=== PATIENT | female | born 1950 | race Caucasian/White ===

== ENCOUNTER 2017-11-16 09:46 | Emergency (ER) | payer MEDICARE, MEDICAID ==
[~2017-11-16] VITALS: Ht 157.5 cm; Wt 66.2 kg
[2017-11-16 09:52] VITALS: Ht 157.5 cm; Wt 66.2 kg
[2017-11-16 10:51] VITALS: BP 128/65
== END 2017-11-16 10:51 | disposition home or self-care (01) ==
LOC: ED 09:46
DX: S59.911A Unspecified injury of right forearm, initial encounter (principal); I10 Essential (primary) hypertension; E11.9 Type 2 diabetes mellitus without complications; J45.909 Unspecified asthma, uncomplicated; X50.9XXA Other and unspecified overexertion or strenuous movements or postures, initial encounter; Y99.8 Other external cause status; Y93.89 Activity, other specified; Y92.89 Other specified places as the place of occurrence of the external cause

== ENCOUNTER 2018-08-31 03:45 | Emergency (ER) | payer MEDICARE, MEDICAID ==
[~2018-08-31] VITALS: Ht 160 cm; Wt 68.0 kg
[2018-08-31 03:50] VITALS: Ht 160 cm; Wt 68.0 kg
[2018-08-31 04:57] VITALS: BP 132/86
== END 2018-08-31 04:57 | disposition left against medical advice (07) ==
LOC: ED 03:45
DX: S80.922A Unspecified superficial injury of left lower leg, initial encounter (principal); J45.909 Unspecified asthma, uncomplicated; I10 Essential (primary) hypertension; E11.9 Type 2 diabetes mellitus without complications; E78.00 Pure hypercholesterolemia, unspecified; W55.03XA Scratched by cat, initial encounter; Y93.89 Activity, other specified; Y92.89 Other specified places as the place of occurrence of the external cause; Y99.8 Other external cause status

== ENCOUNTER 2019-08-03 10:51 | Emergency (ER) | payer OTHER, MEDICAID ==
[~2019-08-03] VITALS: Ht 160 cm; Wt 65.8 kg
[2019-08-03 10:53] VITALS: Ht 160 cm; Wt 65.8 kg
[2019-08-03 11:29] VITALS: BP 150/79
== END 2019-08-03 11:29 | disposition home or self-care (01) ==
LOC: ED 10:51
DX: L02.512 Cutaneous abscess of left hand (principal); J44.9 Chronic obstructive pulmonary disease, unspecified; I10 Essential (primary) hypertension; E11.9 Type 2 diabetes mellitus without complications; J45.909 Unspecified asthma, uncomplicated; Z90.49 Acquired absence of other specified parts of digestive tract; Z90.710 Acquired absence of both cervix and uterus

== ENCOUNTER 2019-10-26 05:17 | Inpatient (IN) | payer OTHER, MEDICAID ==
[~2019-10-26] VITALS: Ht 160 cm; Wt 63.5 kg
[2019-10-26 05:24] VITALS: Ht 160 cm; Wt 63.5 kg
[2019-10-26 06:11] LABS: BASOPHIL % 0.1 % (0-2); PLATELET COUNT 156 x10^3mcL (130-400)
[2019-10-26 06:47] LABS: CALCIUM 9.9 mg/dL (8.5-10.1); CARBON DIOXIDE 23.9 mmol/L (21-32)
[2019-10-26 06:52] LABS: ALBUMIN 4.2 g/dL (3.4-5.0); BILIRUBIN TOTAL 0.57 mg/dL (0.20-1.00)
[2019-10-26 12:39] VITALS: BP 109/52
[2019-10-26 13:50] VITALS: BP 112/58
[2019-10-26 16:25] VITALS: BP 122/74
[2019-10-26 16:30] VITALS: BP 126/66
[2019-10-26 19:15] VITALS: BP 114/54
[2019-10-26] MEDS ORDERED: LISINOPRIL40 MG PO (20:27)
[2019-10-26] MEDS ORDERED: LASIX20 MG PO (20:28)
[2019-10-26] MEDS ORDERED: METFORMIN ER500 M1 PO (20:28)
[2019-10-26] MEDS ORDERED: PROAIR HFA8.5 GM IH (20:29)
[2019-10-26] MEDS ORDERED: METHADONE HCL10 MG (20:30)
[2019-10-26] MEDS ORDERED: METHADONE (20:34)
[2019-10-27 05:39] VITALS: BP 121/62
[2019-10-27 06:50] LABS: BASOPHIL % 0.3 % (0-2); PLATELET COUNT 131 x10^3mcL (130-400); RED CELL DISTRIBUTION WIDTH 14.1 % (11.5-14.5)
[2019-10-27 07:19] LABS: CARBON DIOXIDE 26.8 mmol/L (21-32); CHLORIDE SERUM 106 mmol/L (98-107); CREATININE SERUM 0.8 mg/dL (0.6-1.0); GFR1 > 60 mL/min; GLUCOSE SERUM 151 mg/dL (74-106); POTASSIUM SERUM 4.5 mmol/L (3.5-5.1); SODIUM SERUM 142 mmol/L (136-145)
[2019-10-27 08:35] VITALS: BP 112/53
[2019-10-27 12:23] VITALS: BP 108/51
[2019-10-27 16:46] VITALS: BP 113/56
[2019-10-27 21:30] VITALS: BP 111/57
[2019-10-28 06:04] VITALS: BP 126/61
[2019-10-28 06:49] LABS: BASOPHIL % 0.4 % (0-2); RED CELL DISTRIBUTION WIDTH 13.9 % (11.5-14.5)
[2019-10-28 07:42] LABS: PLATELET COUNT 102 x10^3mcL (130-400)
[2019-10-28 08:53] LABS: CALCIUM 9.1 mg/dL (8.5-10.1); CARBON DIOXIDE 26.8 mmol/L (21-32); CHLORIDE SERUM 105 mmol/L (98-107); CREATININE SERUM 0.9 mg/dL (0.6-1.0); GFR1 > 60 mL/min; GLUCOSE SERUM 126 mg/dL (74-106); POTASSIUM SERUM 4.5 mmol/L (3.5-5.1); SODIUM SERUM 139 mmol/L (136-145)
[2019-10-28 08:58] VITALS: BP 119/62
[2019-10-28 11:43] VITALS: BP 103/50
[2019-10-28 16:27] VITALS: BP 114/66
[2019-10-28 20:50] VITALS: BP 106/47
[2019-10-29 05:55] VITALS: BP 147/64
[2019-10-29 07:25] LABS: BASOPHIL % 0.4 % (0-2); RED CELL DISTRIBUTION WIDTH 13.4 % (11.5-14.5)
[2019-10-29 07:54] LABS: CALCIUM 9.1 mg/dL (8.5-10.1); CARBON DIOXIDE 27.6 mmol/L (21-32); CHLORIDE SERUM 105 mmol/L (98-107); CREATININE SERUM 0.8 mg/dL (0.6-1.0); GFR1 > 60 mL/min; GLUCOSE SERUM 130 mg/dL (74-106); POTASSIUM SERUM 4.4 mmol/L (3.5-5.1); SODIUM SERUM 142 mmol/L (136-145)
[2019-10-29 08:05] LABS: PLATELET COUNT 123 x10^3mcL (130-400)
[2019-10-29 08:32] VITALS: BP 128/55
== END 2019-10-29 10:41 | disposition left against medical advice (07) | DRG 281 ==
LOC: ED 05:17 → DU 07:33
PROVIDERS: Emergency Medicine; Family Medicine; ADMIT Internal Medicine
DX: I21.4 Non-ST elevation (NSTEMI) myocardial infarction (principal); F11.20 Opioid dependence, uncomplicated; I10 Essential (primary) hypertension; J44.9 Chronic obstructive pulmonary disease, unspecified; E78.5 Hyperlipidemia, unspecified; F17.210 Nicotine dependence, cigarettes, uncomplicated; Z68.24 Body mass index [BMI] 24.0-24.9, adult; Z79.84 Long term (current) use of oral hypoglycemic drugs; Z53.29 Procedure and treatment not carried out because of patient's decision for other reasons
CPT/HCPCS: 82962; 83880; 99406; C9113; G0378; J1644; J2270; J2405; J7030; Q0092